=== PATIENT | female | born 1985 | race Caucasian/White ===

== ENCOUNTER 2019-10-28 09:53 | Day surgery (SDC) | payer OTHER ==
[~2019-10-28] VITALS: Ht 152.4 cm; Wt 99.5 kg
[2019-10-28] MEDS ORDERED: NAPRELAN500 MG PO (10:43)
[2019-10-28] MEDS ORDERED: BENTYL 20MG20 MG/TAB PO (10:44)
[2019-10-28] MEDS ORDERED: ZOLOFT 50MG50 MG PO (10:44)
[2019-10-28 11:01] VITALS: BP 107/72; PULSE 87; TEMP 98.3
[2019-10-28 12:45] VITALS: BP 100/88; PULSE 82; TEMP 97.6
--- NOTE | 2019-10-28 12:45 | NUR ---
TO BAY 7 PER CART FROM ENDOSCOPY. ALERT ORIENTED X3, TALKING TO STAFF AND FAMILY. DR HARDEN INTO TALK WITH PATIENT AND HER .
[2019-10-28 13:00] VITALS: BP 101/60; PULSE 79
--- NOTE | 2019-10-28 13:00 | NUR ---
RECEIVED MUFFIN AND WATER.
[2019-10-28 13:15] VITALS: BP 96/54; PULSE 78
--- NOTE | 2019-10-28 13:15 | NUR ---
ATE 100% AND TOLERATED WELL. WIDE AWAKE AND TALKING WITH .
[2019-10-28 13:25] VITALS: BP 117/77; PULSE 92
--- NOTE | 2019-10-28 13:25 | NUR ---
RECEIVED DISCHARGE INSTRUCTIONS AND VERBALIZED UNDERSTANDING. DISONTINUED IV AND INT-CATHETER INTACT PATIENT GETTING DRESSED AND WENT TO GET THE CAR.
--- NOTE | 2019-10-28 13:30 | NUR ---
AMBULATED TO BATHROOM AND TOLERATED WELL.
--- NOTE | 2019-10-28 13:38 | NUR ---
DISCHARGED PER WC BY NURSING STAFF TO PRIVATE CAR IN CARE OF - AMANDO.
== END 2019-10-28 13:45 | disposition home or self-care (01) ==
LOC: SDCO 09:53
DX: R19.4 Change in bowel habit (principal); R10.13 Epigastric pain; R10.84 Generalized abdominal pain; R14.0 Abdominal distension (gaseous); R93.5 Abnormal findings on diagnostic imaging of other abdominal regions, including retroperitoneum; K29.60 Other gastritis without bleeding; K63.9 Disease of intestine, unspecified; R53.83 Other fatigue; F17.210 Nicotine dependence, cigarettes, uncomplicated; F41.9 Anxiety disorder, unspecified; Z83.79 Family history of other diseases of the digestive system
CPT/HCPCS: J7120